=== PATIENT | female | born 1965 | race African-American/Black ===

== ENCOUNTER → 2016-11-04 | Outpatient (CLI) | payer MEDICARE, OTHER ==
--- NOTE | ~2016-11-04 | CT55 ---
[facility] A Service of [facility] RADIOLOGY TEXT RESULTS PATIENT: ALIZA MITCHELL LOCATION: [facility] : 65 UNIT #: [id number] AGE: [address]: GEORGIA CUADRA APRN SEX: F ORDER DR: [id number] [facility] [address] [place], [place] [address] [id number] O MR#: [id number] Acc #: [id number] NAME: ALIZA MITCHELL : 1965 SEX: F STUDY DATE/TIME: 11/04/2016 15:22 UNIT: [facility] ROOM: STUDY DESCRIPTION: CT Chest W Con Attending Physician: Georgia Cuadra Np Referring Physician: Georgia Cuadra Np Ordering Physician: Georgia Cuadra Np Primary Care Physician: Guerda Kohler M.D. MEDICAL IMAGING REPORT This report is preliminary unless electronic signature is present EXAM CT chest with contrast, 11/04/2016 INDICATIONS Observation for metastatic disease. Bilateral neck swelling for [address] of the chest utilizing 100 mL Isovue-370 IV contrast. Coronal and sagittal reconstructions were obtained. This CT exam was performed with one or more of the following radiation dose reduction techniques: Automatic exposure control, adjustment of mA and/or kV according to patient size, and iterative reconstruction. COMPARISON CT of the neck soft tissue dated 11/04/2016. FINDINGS There is no enlarged mediastinal, hilar, or axillary lymph nodes. No enlarged supraclavicular lymph nodes. Thoracic aorta is normal in caliber. No pericardial or pleural effusion. The lungs are clear. No focal consolidation. Central airways are patent. Diffusely diminished attenuation throughout the hepatic parenchyma is indicative of hepatic steatosis. There is a few small, presumed, flash-filling hemangiomas in the liver. These measure less than 1 cm. No acute osseous abnormalities. IMPRESSION 1. No acute findings in the chest. Specifically, no evidence of mediastinal, hilar, or axillary lymphadenopathy. 2. Hepatic steatosis. [facility] A Service of [facility] RADIOLOGY TEXT RESULTS PATIENT: ALIZA MITCHELL LOCATION: [facility] : 65 UNIT #: [id number] AGE: [address]: GEORGIA CUADRA APRN SEX: F ORDER DR: Dictated by... Christopher Díaz M.D. THIS IS AN ELECTRONICALLY VERIFIED REPORT Christopher Díaz M.D. at 11/05/2016 8:18 AM RPC/mari TD: 11/04/2016 21:51 JOB #: [id number] MEDICAL IMAGING REPORT COPY
--- NOTE | ~2016-11-04 | CT114 ---
[facility] A Service of [facility] RADIOLOGY TEXT RESULTS PATIENT: ALIZA MITCHELL LOCATION: [facility] : 65 UNIT #: [id number] AGE: [address]: GEORGIA CUADRA APRN SEX: F ORDER DR: [id number] [facility] [address] [place], [place] [address] [id number] O MR#: [id number] Acc #: [id number] NAME: ALIZA MITCHELL : 1965 SEX: F STUDY DATE/TIME: 11/04/2016 14:27 UNIT: [facility] ROOM: STUDY DESCRIPTION: CT Soft Tissue Neck W Cont Attending Physician: Georgia Cuadra Np Referring Physician: Georgia Cuadra Np Primary Care Physician: Guerda Kohler M.D. MEDICAL IMAGING REPORT This report is preliminary unless electronic signature is present EXAM CT neck soft tissue with contrast 11/04/2016. COMPARISON CT chest 11/04/2016. HISTORY 51-year-old female with bilateral neck swelling for 1 week. Supraclavicular lymphadenopathy. Cough and congestion for [address] neck soft tissue utilizing mL S 370 IV contrast. Coronal and sagittal reconstructions were obtained. This CT exam was performed with one or more of the following radiation dose reduction techniques: automatic exposure control, adjustment of mA and/or kV according to patient size, and iterative reconstruction. FINDINGS There is no supraclavicular lymphadenopathy. No enlarged cervical lymph nodes. The cervical vasculature is widely patent. Thyroid parenchyma is uniform. The nasopharynx, oropharynx and hypopharynx are symmetric. Laryngeal soft tissues are within normal limits. No acute osseous abnormalities. There is some mucosal thickening in the sphenoid sinus. IMPRESSION Negative CT neck soft tissue. No findings to account for the patient's neck swelling. Dictated by... Christopher Díaz M.D. [facility] A Service [facility] RADIOLOGY TEXT RESULTS PATIENT: ALIZA MITCHELL LOCATION: [facility] : 65 UNIT #: [id number] AGE: [address]: GEORGIA CUADRA APRN SEX: F ORDER DR: THIS IS AN ELECTRONICALLY VERIFIED REPORT Christopher Díaz M.D. at 11/05/2016 8:18 AM JANICE/chely TD: 11/04/2016 22:11 JOB #: [id number] MEDICAL IMAGING REPORT COPY
[2016-11-04 15:10] LABS: POC - CREATININE 0.94 mg/dL (0.44-1.03); POC - GFR >60.0 mL/min (>60)
== END | disposition home or self-care (01) ==
LOC: CCAT 14:15
PROVIDERS: Nurse Practitioner
DX: R59.0 Localized enlarged lymph nodes (principal); K76.0 Fatty (change of) liver, not elsewhere classified
CPT/HCPCS: 70491; 71260; 82565; Q9967